=== PATIENT | female | born 1970 | race Caucasian/White ===

== ENCOUNTER 2023-03-26 09:40 | Emergency (ER) | payer BC ==
[2023-03-26 10:24] LABS: #Basophils 0.1 thou/uL (0.0-0.2); #Eosinphils 0.2 thou/uL (0.0-0.7); #Lymphocytes 1.4 thou/uL (1.20-3.40); #Monocytes 0.4 thou/uL (0.11-0.59); #Neutrophils 5.2 thou/uL (1.40-6.50); %Basophils 0.8 % (0.0-1.0); %Eosinophils 2.2 % (0.0-10.0); %Lymphocytes 19.8 % (21.0-51.0); %Neutrophils 71.1 % (42.0-75.0); Hemoglobin 12.6 g/dL (12.0-16.0); Mean Corpuscular HGB CONC 33.1 g/dL (32.0-36.0); Mean Corpuscular Hemoglobin 29.2 pg (27.0-31.0); Mean Corpuscular Volume 88.2 fl (78.0-98.0); Mean Platelet Volume 7.7 fL (7.4-10.4); Platelet Count 282 10x3/uL (130-400); RBC Distribution Width 11.7 % (11.5-14.5); Red Blood Cell (RBC) Count 4.33 mill/uL (4.20-5.40); White Blood Cell (WBC) Count 7.3 10x3/uL (4.8-10.8)
[2023-03-26 10:40] LABS: ALT (SGPT) 25 U/L (8-55); AST (SGOT) 18 U/L (5-34); Albumin 4.6 g/dL (3.5-5.0); Alkaline Phosphatase 102 U/L (40-110); Anion Gap 15 mmol/L (10-20); BUN (Urea Nitrogen) 14 mg/dL (9.8-20.1); Bilirubin, Total 0.3 mg/dL (0.2-1.2); Calc. Creatinine Clearance 0 mL/min (70-130); Calcium 9.7 mg/dL (7.8-10.44); Carbon Dioxide 27 mmol/L (22-29); Chloride 104 mmol/L (98-107); Estimated GFR 93; Globulin 2.6 g/dL (2.4-3.5); Glucose 85 mg/dL (70-105); Lipase 21 U/L (8-78); Potassium 3.7 mmol/L (3.5-5.1); Protein, Total 7.2 g/dL (6.0-8.3); Sodium 142 mmol/L (136-145)
[2023-03-26] MEDS ORDERED: Cyclobenzaprine 10 MG TAB ONE (10:44)
[2023-03-26] MEDS ORDERED: Labetalol HCl 100 MG/20 ML VIAL ONE (11:03)
[2023-03-26 11:29] LABS: Bilirubin Negative (Negative); Blood, Urine Negative (Negative); Clarity Clear (Clear); Glucose, Urine (Dipstick) Negative (Negative); Ketone, Urine Negative (Negative); Leukocyte Negative (Negative); Nitrite Negative (Negative); Protein, Urine (Dipstick) Negative (Neg-Trace); Specific Gravity, Urine 1.015 (1.005-1.030); Urobilinogen 0.2 mg/dL (Less than 2)
[2023-03-26 11:35] LABS: Bacteria/HPF None Seen HPF (None Seen); CAUTI Indications for Culture Dysuria,urgency,freq; RBC/HPF None Seen HPF (0-3); Squamous Epithelial 0-3 HPF (0-3); WBC/HPF None Seen HPF (0-3)
[2023-03-26 11:36] LABS: Urine Culture Reflex No No
[2023-03-27] MEDS ORDERED: Iopamidol 370 76% 100 ML VIAL ONE (10:38)
== END 2023-03-26 12:12 | disposition home or self-care (01) ==
LOC: BURERS 09:40
DX: K59.00 Constipation, unspecified (principal); I10 Essential (primary) hypertension
CPT/HCPCS: 36415; 71046; 74177; 80053; 81001; 83690; 83880; 84484; 85025; 93005; 94760; 96374

== ENCOUNTER 2023-03-28 23:33 | Emergency (ER) | payer BC ==
[2023-03-29] MEDS ORDERED: Dexamethasone 10 MG/ML VIAL ONE (00:04)
== END 2023-03-29 00:13 | disposition home or self-care (01) ==
LOC: BURERS 23:33
DX: S16.1XXA Strain of muscle, fascia and tendon at neck level, initial encounter (principal); F43.0 Acute stress reaction; I10 Essential (primary) hypertension
CPT/HCPCS: 93005; 96372; J1100

== ENCOUNTER 2023-05-22 03:26 | Emergency (ER) | payer BC, SELFPAY ==
[2023-05-22] MEDS ORDERED: Lidocaine 1% PF 5 ML VIAL ONE (03:54)
[2023-05-22] MEDS ORDERED: Boostrix 0.5 ML (Tdap) VIAL (>/=7 yrs of age) ONE (03:56)
== END 2023-05-22 04:15 | disposition home or self-care (01) ==
LOC: BURERS 03:26
DX: S60.111A Contusion of right thumb with damage to nail, initial encounter (principal); I10 Essential (primary) hypertension; W22.8XXA Striking against or struck by other objects, initial encounter
CPT/HCPCS: 10060; 90471; 90715

== ENCOUNTER 2024-01-14 02:22 | Emergency (ER) | payer OTHER, SELFPAY | END 2024-01-14 03:15 | disposition home or self-care (01) | LOC: BURERS 02:22 | DX: L03.012 Cellulitis of left finger (principal); I10 Essential (primary) hypertension | CPT/HCPCS: 99283 ==

== ENCOUNTER 2024-01-15 21:08 | Emergency (ER) | payer OTHER ==
[2024-01-15] MEDS ORDERED: Lidocaine 1% PF 5 ML VIAL ONE (21:35)
[2024-01-15] MEDS ORDERED: traMADol HCl 50 MG TAB ONE (22:03)
[2024-01-15] MEDS ORDERED: Clindamycin 150 MG CAP ONE (22:17)
== END 2024-01-15 22:25 | disposition home or self-care (01) ==
LOC: BURERS 21:08
DX: L03.012 Cellulitis of left finger (principal); I10 Essential (primary) hypertension
CPT/HCPCS: 10060; 87070; 87077; 87186; 87205

== ENCOUNTER 2024-04-17 10:06 | Emergency (ER) | payer OTHER ==
[2024-04-17] MEDS ORDERED: Ketorolac Tromethamine 30 MG (1 mL) VIAL ONE (10:46)
== END 2024-04-17 10:53 | disposition home or self-care (01) ==
LOC: BURERS 10:06
DX: S29.012A Strain of muscle and tendon of back wall of thorax, initial encounter (principal); I10 Essential (primary) hypertension; X58.XXXA Exposure to other specified factors, initial encounter
CPT/HCPCS: 96372; 99283; J1885